=== PATIENT | female | born 1990 | race Caucasian/White ===

== ENCOUNTER 2021-08-27 21:40 | Emergency (ER) | payer SELFPAY ==
[~2021-08-27] VITALS: Ht 160 cm; Wt 70.3 kg
[2021-08-28 00:50] VITALS: BP 120/75
--- NOTE | 2021-08-28 00:55 | NUR ---
EVALUATED BY DR. GARCIA
--- NOTE | 2021-08-28 00:56 | NUR ---
PT SENT TO LOBBY
[2021-08-28] MEDS ORDERED: SODIUM PHOSPHATE 118 ML ENEM RC ONE (02:35)
[2021-08-28] MEDS ORDERED: LACTULOSE 20 GM/30 ML UDC PO ONE (02:50)
--- NOTE | 2021-08-28 03:05 | NUR ---
PT HAD 1 LARGE BM AND REPORTS RELIEF.
[2021-08-28] MEDS ORDERED: DOCU-299 PO (03:18)
[2021-08-28] MEDS ORDERED: NA P135N RC (03:18)
[2021-08-28] MEDS ORDERED: LACT10SO86 PO (03:18)
--- NOTE | 2021-08-28 03:23 | NUR ---
Patient discharged with v/s stable. Written and verbal after care instructions given and explained. Patient alert, oriented and verbalized understanding of instructions. Ambulatory with steady gait. All questions addressed prior to discharge. ID band removed. Patient advised to follow up with PMD. Rx of COLACE, LACTULOSE, FLEET ENEMA given. Patient educated on indication of medication including possible reaction and side effects. Opportunity to ask questions provided and answered.
== END 2021-08-28 03:23 | disposition home or self-care (01) ==
LOC: MED 21:40
DX: K59.00 Constipation, unspecified (principal)
CPT/HCPCS: 74018; 99283